=== PATIENT | female | born 1955 | race Caucasian/White ===

== ENCOUNTER 2023-07-13 13:16 | Emergency (ER) | payer MEDICARE, OTHER, SELFPAY ==
[2023-07-13 13:34] VITALS: BP 157/78
[2023-07-13 14:07] LABS: % Basophils 0.5 % (0-2); % Immature Granulocytes 0.1 % (0-0.5); % Lymphocytes 37.2 % (20.5-51.1); % Monocytes 6.6 % (1.7-9.3); % Neutrophils 53.6 % (42.2-75.2); Absolute Eosinophils 0.2 10^3/uL (0-0.7); Absolute Lymphocytes 2.9 10^3/uL (1.2-3.4); Absolute Monocytes 0.5 10^3/uL (0.1-0.6); Absolute Neutrophils 4.1 10^3/uL (1.4-6.5); Hematocrit 35.2 % (37.0-47.0); Mean Corp Hgb Conc. 34.1 g/dL (33.0-37.0); Mean Corpuscular Hgb 31.3 pg (27.0-31.0); Mean Corpuscular Volume 91.9 fL (81.0-99.0); Mean Platelet Volume 9.7 fL (7.4-10.4); Nucleated Red Blood Cells % 0 %; Platelet Count 193 10^3/uL (130-400); Red Blood Cell Count 3.83 10^6/uL (4.20-5.40); White Blood Cell Count 7.7 10^3/uL (4.8-10.8)
[2023-07-13 14:35] LABS: ALT (SGPT) 18 U/L (0-35); AST (SGOT) 24 U/L (14-36); Alkaline Phosphatase 72 U/L (38-126); Blood Urea Nitrogen 19 mg/dl (7-17); Calcium 9.5 mg/dl (8.4-10.2); Carbon Dioxide 29 mmol/L (22-30); Chloride 104 mmol/L (98-107); Glucose 93 mg/dl (70-99); Potassium 6.3 mmol/L (3.5-5.1); Sodium 135 mmol/L (135-145); Total Bilirubin 0.5 mg/dl (0.2-1.3); Total Protein 6.6 g/dl (6.3-8.2); eGFR 49.31
[2023-07-13 15:40] LABS: Troponin I < 0.012 ng/ml
[2023-07-13 15:41] VITALS: BP 130/61
--- NOTE | 2023-07-13 15:41 | ED.GENMED ---
History of Present Illness
General
Chief Complaint: Abdominal Pain
Source: patient
Exam Limitations: none
Time Seen by Provider: 07/13/23 15:29
Travel History
Have you had any contact with someone who has COVID-19?: No
Do you have any symptoms of coronavirus? Fever > 100 degrees, chills, cough, shortness of breath, sore throat, loss of taste or smell, muscle aches, or headache?: No
History of Present Illness
History of Present Illness:
See MDM
Past History
Past History
ED Past Medical History: HTN, Hypercholesterolemia and NIDDM
ED Past Surgical History: (X 3)
Social History
Tobacco: Former smoker
Alcohol: None
Personal:
Living: with family
Phy Exam
Physical Exam
Physical Exam:
See MDM
Course
Orders/Labs/Results
Orders:
Orders
07/13/23 13:39
Electrocardiogram (*1) Urgent
Reason for Study: Abdominal Pain
EKG- Treatment ONCE
07/13/23 13:56
Complete Blood Count/With Diff Urgent
Comprehensive Metabolic Panel Urgent
Lipase Urgent
Comment: ADD ON
Magnesium Urgent
Comment: ADD ON
Troponin I Urgent
07/13/23 15:39
Dextrose 50%-Water [Dextrose 50% Syringe] 25 grams IV NOW STA
Insulin Human Regular [Novolin R] 5 units IV NOW STA
Sodium Zirconium Cyclosilicate [Lokelma] 10 gram PO NOW STA
US Abdomen Complete/Upper Urgent
Comment:
Reason For Exam: RUQ pain
07/13/23 15:43
Add On- LAB Urgent
Tests Added?: Lipase, Magnesium
07/13/23 19:19
Potassium Urgent
07/13/23 20:01
Electrocardiogram (*1) Urgent
Reason for Study: QTc Monitoring
EKG- Treatment ONCE
Abnormal Lab Results
07/13/23
13:56
RBC 3.83 L 10^6/uL
(4.20-5.40)
Hct 35.2 L %
(37.0-47.0)
MCH 31.3 H pg
(27.0-31.0)
Potassium 6.3 H* mmol/L
(3.5-5.1)
BUN 19 H mg/dl
(7-17)
Creatinine 1.2 H mg/dL
(0.6-1.0)
Magnesium 1.3 L mg/dl
(1.6-2.3)
07/13/23 13:56
07/13/23 19:19
Vital Signs
Initial and Last Documented VS:
Initial Vital Signs
Temp Pulse Resp BP Pulse Ox
98.0 F 56 20 157/78 100
07/13/23 13:34 07/13/23 13:34 07/13/23 13:34 07/13/23 13:34 07/13/23 13:34
Last Documented Vital Signs
Temp Pulse Resp BP Pulse Ox
98.0 F 51 14 110/44 100
07/13/23 13:34 07/13/23 19:00 07/13/23 19:00 07/13/23 19:00 07/13/23 19:00
MDM/Problems Addressed
Differential Diagnosis Includes:
HPI and MDM Narrative:
67-year-old female presenting with vague right flank pain that wraps around to the center. She has a history of gallstones. She is unsure if there is a relationship between food or exertion. Patient states this feels similar to reflux
On exam, she is well-appearing nontoxic. She does have right upper quadrant tenderness. Will obtain ultrasound to rule out gallbladder pathology. Patient found to have potassium 6.3 and EKG does show evidence of peaked T waves. Patient given
insulin and dextrose in addition to Lokelma
Physical exam
General: Well appearing and non-toxic
HEENT: protecting airway
Neck: appears supple
CV: No evidence of cyanosis
Resp: No accessory muscle use
Abd: Non-distended. Right upper quadrant tenderness. No rebound
Extremities: No deformities
Neuro: alert
Psych: Normal affect
Skin: Intact
Problems Addressed including Acute and Chronic Conditions affecting care:
1. Abdominal pain
Acuity: acute
Prognosis: stable
Details: Given her history of gallstones, will obtain right upper quadrant ultrasound
2. Hyperkalemia
Acuity: acute
Prognosis: unstable
Details: Given the elevated potassium, will give insulin and dextrose in addition to Lokelma
Updates
Initial potassium elevated. There is evidence of peaked T waves. After insulin and Lokelma the potassium was rechecked and has normalized. Repeat EKG shows cessation of peak T waves. With treatment, patient states all of her symptoms have
resolved. Upon further questioning, she is on a multivitamin which she believes may have discussed avoiding this multivitamin have her symptoms we discussed with her PCP. Given her age and comorbidities, patient placed on cardiac callback tracker
Differential Diagnosis (but not limited to): Pancreatitis, gastritis, gallstone, ACS
Testing considered: D-dimer
Drug therapy (if applicable): OTC meds, please see d/c instruction regarding Rx drugs
Amount and/or Complexity of Data Reviewed
Clinical info obtained from: Patient
External data reviewed: N/A
Labs I independently reviewed (but not limited to): Elevated potassium
Radiology: Ultrasound report reviewed
Pulse Ox: not hypoxic
EKG independently reviewed: Normal sinus rhythm, normal axis, No STEMI, peaked T waves
Director Of Pediatric Rehabilitation: Sinus rhythm
Critical Care: The high probability of a clinically significant, sudden or life threatening deterioration of the cardiovascular system(s) required my full and direct attention, intervention and personal management. The aggregate critical care time
was 33 minutes. This time is in addition to time spent performing reported procedures but includes the following:
[x] Data Review and interpretation
[x] Patient assessment and monitoring of vital signs
[x] Documentation
[x] Medication orders and management
Risk of Complication:
Social Determinants of health: Good social support
Discussed with other providers: N/A
Escalation of Care includes Admit/Obs: After being observed in the Emergency Department, pt stable for discharge.
Occasional wrong word or 'sound a like' substitutions may have occurred due to the inherent limitations of voice recognition software. Read the chart carefully and recognize, using context, where substitutions have occurred.
*Critical Care Note
Total Time (30-74mins, 75-104mins- exclusive of procedures): 33 min
ED Attending Note
-
Portions of this chart may have been created with voice recognition software.� Occasional wrong word or��sound alike� substitutions may have occurred due to the inherent limitations of voice recognition software.
Discharge Plan
Departure
Patient Disposition: Home (Routine Discharge)
Date of Disposition: 07/13/23
Time of Disposition: 20:38
Patient with high blood pressure during this ER visit?: No
Discharge Problem:
Hyperkalemia
Instructions: Chest Pain CBC Follow Up
Prescriptions:
No Action
metformin 500 mg Tablet
500 mg PO BID
Theragen Tablet
1 tab PO DAILY
aspirin 81 mg Tablet,Delayed Release (Dr/Ec)
81 mg PO DAILY
pantoprazole [Protonix] 40 mg Tablet,Delayed Release (Dr/Ec)
40 mg PO BID
simvastatin [Zocor] 20 mg Tablet
20 mg PO HS
lisinopril 10 mg Tablet
10 mg PO DAILY
magnesium oxide 500 mg magnesium Tablet
500 mg PO DAILY
metoprolol succinate [Toprol XL] 25 mg Tablet Extended Release 24 Hr
25 mg PO DAILY
Referrals:
Lowell Woodson MD [Active] -
NONE,* [Family Provider] -
Activity Restrictions/Additional Instructions:
Please return for any worsening symptoms.
You may return at any time if you have further concerns.
Please follow up with your doctor at the first available appointment, preferably this week. Please discuss your elevated potassium and your multivitamin.
You were placed on the cardiac callback tracker. Someone from their office should call you in the next few days. If you do not hear from them in the next few days, please give them a call.
Thank you for choosing [facility].
Interventions
Interventions:
*Risk Screen - Suicide Last Done: 07/13/23 16:27
*General Assessment Last Done: 07/13/23 16:27
*Neglect/Abuse Screening Last Done: 07/13/23 16:27
ED- Fall Risk Assessment Last Done: 07/13/23 16:26
*ED COVID-19 Vaccine History Last Done: 07/13/23 16:27
QT-Amqnai-Xebwuczmna Assessment Last Done: 07/13/23 16:10
[2023-07-13] MEDS: NOVOLIN R 5 UNITS IV (16:15)
[2023-07-13] MEDS: DEXTROSE 50% SYRINGE 25 GRAMS IV (16:16)
[2023-07-13] MEDS: LOKELMA 10 GRAM PO (16:16)
[2023-07-13 17:36] LABS: Lipase 199 U/L (23-300); Magnesium 1.3 mg/dl (1.6-2.3)
[2023-07-13 18:04] VITALS: BP 143/63
[2023-07-13 19:00] VITALS: BP 110/44
[2023-07-13 19:45] LABS: Potassium 4.7 mmol/L (3.5-5.1)
[2023-07-13 20:00] VITALS: BP 108/46
== END 2023-07-13 21:10 | disposition home or self-care (01) ==
LOC: EMR 13:16
PROVIDERS: Emergency Medicine; EMERGENCY PHYSICIAN Student in an Organized Health Care Education/Training Program
DX: E87.5 Hyperkalemia (principal); R10.811 Right upper quadrant abdominal tenderness; K80.20 Calculus of gallbladder without cholecystitis without obstruction; I10 Essential (primary) hypertension; E78.00 Pure hypercholesterolemia, unspecified; E11.9 Type 2 diabetes mellitus without complications; Z87.891 Personal history of nicotine dependence; Z79.82 Long term (current) use of aspirin; Z79.84 Long term (current) use of oral hypoglycemic drugs
CPT/HCPCS: 99291; 96374; 96375; 76700; 80053; 83690; 83735; 84132; 84484; 85025; 93005

== ENCOUNTER → 2023-07-19 07:25 | Outpatient (REF) | payer MEDICARE, OTHER, SELFPAY | LOC: DHCBC/DCA 07:25 | PROVIDERS: ATTENDING PHYSICIAN Internal Medicine Cardiovascular Disease | DX: R07.89 Other chest pain (principal) | CPT/HCPCS: 78452; 93017; A9500 ==

== ENCOUNTER → 2024-03-11 09:25 | Outpatient (REF) | payer MEDICARE, OTHER, SELFPAY | LOC: RCS 09:25 | PROVIDERS: ATTENDING PHYSICIAN Internal Medicine Cardiovascular Disease | DX: R07.89 Other chest pain (principal); Z82.49 Family history of ischemic heart disease and other diseases of the circulatory system | CPT/HCPCS: 93306 ==